=== PATIENT | male | born 1975 | race Two or more races ===

== ENCOUNTER 2020-10-18 07:26 | Emergency (ER) | payer OTHER ==
[~2020-10-18] VITALS: Ht 177.8 cm; Wt 86.2 kg
[2020-10-18] MEDS ORDERED: ZYRTEC10 M3 PO (14:11)
[2020-10-18] MEDS ORDERED: MEDROLPACK PO (14:11)
== END 2020-10-18 14:14 | disposition home or self-care (01) ==
LOC: ER 07:26
DX: R21 Rash and other nonspecific skin eruption (principal)